=== PATIENT | male | born 1950 | race Caucasian/White ===

== ENCOUNTER 2017-04-23 19:50 | Inpatient (IN) ==
[2017-04-23] MEDS ORDERED: SALINE FLUSH 10ml SYRINGE IVF PRN (20:19)
--- NOTE | 2017-04-23 20:25 | Emergency Department Report ---
Chest Pain HPI - General Chief Complaint: Chest Pain Stated Complaint: Elevated Troponin Time Seen by Provider: 04/23/17 20:19 Source: patient, family Mode of arrival: ambulatory Limitations: no limitations - History of Present Illness HPI narrative: Patient went to his first time appointment to see Dr. Jean earlier today, and noted to Dr. Weber that he has had ongoing dyspnea and exertion with some upper chest and throat pain, constant but waxing and waning. The patient describes worsening of the symptoms with exertion or laying flat, improvement of the symptoms but not resolution when he is at rest. During the office visit the patient had lab drawn, had a chest x-ray done that was essentially unchanged from previous with hyperinflation consistent with mild COPD, but no mediastinal changes, no consolidations. Later in the day the lab returned, and showed the patient had a mildly elevated d-dimer at 833, and a significant elevated troponin at 0.38. Patient was contacted and directed back to the emergency department for further evaluation and treatment. Currently the patient states that he is still having mild 2-3 out of 10 up her chest supra-sternal discomfort that he describes as a mild tightness at the base of the neck and throat. - Related Data Home Medications Medication Instructions Recorded Confirmed Methocarbamol [Robaxin-750] 750 mg PO QID #0 01/09/11 04/23/17 Pantoprazole Sodium [Protonix] 40 mg PO ACB #0 01/09/11 04/23/17 Tramadol HCl [Ultram] 100 mg PO QID #0 09/14/11 04/23/17 Meloxicam 7.5 mg PO BID #0 07/21/12 04/23/17 Acetaminophen 500 mg PO QID #0 tab 12/30/14 04/23/17 Ascorbic Acid [Vitamin C] 1,000 mg PO BID #0 12/30/14 04/23/17 Aspirin 81 mg PO DAILY #0 tab 12/30/14 04/23/17 Albuterol Sulfate 1 vial INH PRN PRN #0 12/31/14 04/23/17 Sertraline HCl 100 mg PO DAILY #0 12/31/14 04/23/17 Gabapentin [Gralise] 1,800 mg PO HS #90 tab 02/08/16 04/23/17 Memantine HCl [Namenda Xr] 28 mg PO DAILY #0 cap 02/08/16 04/23/17 Calcium Carbonate [Calcium] 1,000 mg PO DAILY 04/23/17 04/23/17 [place]-3/Dha/Epa/Fish Oil [Fish Oil 1,000 mg PO DAILY 04/23/17 04/23/17 1,000 mg Softgel] Oxycodone Cr [Oxycontin] 15 mg PO QID 04/23/17 04/23/17 Rivastigmine Patch [Exelon Patch] 1 patch TD DAILY 04/23/17 04/23/17 Senna + Docusate [Senna Plus 1 tab PO DAILY 04/23/17 04/23/17 Tablet] Tamsulosin [Flomax] 0.4 mg PO HS 04/23/17 04/23/17 Ubidecarenone [Co Q-10] 200 mg PO DAILY 04/23/17 04/23/17 Allergies Allergy/AdvReac Type Severity Reaction Status Date / Time No Known Drug Allergies Allergy Unknown Verified 04/23/17 21:07 [facility] Patient Stated Medical History Hearing Loss Yes Congestive Heart Failure Yes Bronchitis Yes Pneumonia Yes Sleep Apnea Yes Gastroesophageal Reflux Yes Disease Other GI Yes: ventral hernia Hx Benign Prostatic Yes Hyperplasia Other Musculoskeletal Yes: neck pain Morbid obesity CAD BPH with urinary obstruction Chronic dyspnea on exertion Chronic neck pain, bilateral cervical radiculopathy Chronic low back pain Mild dementia, chronic and treated - memory loss Obstructive sleep apnea, CPAP Left meniscal tear, repaired Congestive heart failure ED Mild gait disturbance Viral labyrinthitis Surgical History: Cardiac catheter with 2 stents. Meniscal tear repair. Hip arthroplasty. ORIF C4 C6, T2 L1. Back surgery 2010. Right knee. Foot surgery Physical Exam - Limitations Limitations: no limitations - General General appearance: alert, obese, other (mild memory deficits) - Normal Exams: Head:: Normocephalic without trauma Eyes:: Pupils are PERRLA w/ EOMI, No scleral icterus, irritation, or foreign bodies noted ENMT:: No facial trauma, nasal exudates, pharyngeal erythema, or exudates are noted Neck:: Full range of motion, without adenopathy, JVD, bruits or thyromegaly Chest/Respirations:: Clear all ellis, with good airflow, and symmetry bilaterally Cardiovascular:: Regular rate and rhythm, without murmur or gallop, Pulses 2+ all extremities, capillary refill, <2 seconds all extremities Abdomen:: Bowel sounds positive, soft, non-tender, non-distended, no hepatosplenomegaly, masses or bruits noted Lymphatic:: No lymphadenopathy, or lymphedema noted Musculoskeletal:: No tenderness, or deformity noted, good range of motion, all extremities Integumentary:: No rashes, hives, or bruising noted, hair and nails, without abnormality Neurological:: Patient is alert, and oriented, cranial nerves, motor/sensory/ cerebellar, exams w/o gross deficits, to observation Psychiatric:: Patient exhibits, appropriate attention, emotion and affect Course Vital Signs Temperature 97.9 F 04/23/17 19:55 Pulse Rate 79 04/23/17 19:55 Respiratory Rate 14 04/23/17 19:55 Blood Pressure 135/72 04/23/17 19:55 Pulse Oximetry 92 04/23/17 19:55 Temperature 97.9 F 04/23/17 19:55 Pulse Rate 79 04/23/17 19:55 Respiratory Rate 14 04/23/17 19:55 Blood Pressure 135/72 04/23/17 19:55 Pulse Oximetry 92 04/23/17 19:55 Chest Pain - MDM Narrative Medical decision making narrative: EKG shows a normal sinus rhythm without ischemia, ectopy, or infarction Patient given 324 mg aspirin chewed, one sublingual nitroglycerin 1 inch of Nitropaste - Patient was informed that he appeared to be having significant injury to the heart currently, and that we wouldn't aggressively intervene as needed. Initially patient states that he will not go to [facility] if we recommended, however family is in agreement that we will start with continued workup at this time, and make decisions about disposition once we have more facts. Repeat CBC - CMP - Troponin- - Lab Data Result diagrams: 04/23/17 20:35 04/23/17 20:35 Lab Results 04/23/17 04/23/17 Range/Units 20:35 20:35 WBC 8.7 (4.5-11.0) T/MM3 RBC 4.63 (4.50-5.90) M/MM3 Hgb 13.8 (13.5-17.5) GM/DL Hct 42.3 (41-53) % MCV 91.4 (80-100) UM3 MCH 29.8 (26-34) UUG MCHC 32.6 (31-37) GM/DL RDW Std Deviation 46.6 (36.9-50.2) FL Plt Count 295 (130-400) T/MM3 MPV 8.6 L (9.4-12.4) UM3 Immature Gran % (Auto) 0.1 (0.0-0.5) % Neut % (Auto) 62.2 (33-66) % Lymph % (Auto) 26.1 (23-45) % [place] % (Auto) 7.5 (0-9.0) % Eos % (Auto) 3.9 (0-4) % Baso % (Auto) 0.2 (0-2) % Neut # 5.4 (1.8-7.7) T/MM3 Lymph # 2.3 (1-4.8) T/MM3 [place] # 0.7 (0-0.8) T/MM3 Eos # 0.3 (0-0.5) T/MM3 Baso # 0.0 (0-0.2) T/MM3 Abs Immat Gran (auto) 0.01 (0.00-0.03) T/MM3 Turbidity < 20 (0-20) Sodium 144 (134-144) MEQ/L Potassium 4.3 (3.6-5) MEQ/L Chloride 105 (98-107) MEQ/L Carbon Dioxide 26 (22-30) MEQ/L Anion Gap 13 (5-15) MEQ/L BUN 27.0 H (9-20) MG/DL Creatinine 1.1 (0.8-1.5) MG/DL GFR Calculation 67 BUN/Creatinine Ratio 25 (6-26) RATIO Glucose 104 (75-110) MG/DL Calculated Osmolality 282 H (261-280) MOSM/KG Calcium 8.9 (8.4-10.2) MG/DL Total Bilirubin 0.60 (0.20-1.30) MG/DL Conjugated Bilirubin 0.00 (0.00-0.30) MG/DL Unconjugated Bilirubin 0.10 (0.00-11.10) MG/DL Icterus Index < 2 (0-7) AST 19 (17-59) U/L ALT 33 (21-72) U/L Alkaline Phosphatase 117 (38-126) U/L Troponin I 0.324 H (0-0.12) ng/ml Total Protein 7.7 (6.3-8.2) G/DL Albumin 4.6 (3.5-5.0) G/DL Globulin 3.1 (2.4-3.6) G/DL Albumin/Globulin Ratio 1.5 (1.1-2.2) RATIO Specimen Hemolysis < 15 (0-25) Critical Care Time Total Critical Care Time: 40 Attestation: Patient required aggressive workup for non-STEMI including volume resuscitation for mild hypotension after nitroglycerin Disposition Clinical Impression: Non-STEMI (non-ST elevated myocardial infarction) Disposition: 02 To [facility] [place] Care Condition: Improved Prescriptions: Continue Meloxicam 7.5 mg PO BID #0 Acetaminophen 500 mg PO QID #0 tab Ascorbic Acid [Vitamin C] 1,000 mg PO BID #0 Aspirin 81 mg PO DAILY #0 tab Albuterol Sulfate 1 vial INH PRN PRN #0 PRN Reason: SHORTNESS OF AIR Gabapentin [Gralise] 1,800 mg PO HS #90 tab Memantine HCl [Namenda Xr] 28 mg PO DAILY #0 cap Oxycodone Cr [Oxycontin] 15 mg PO QID Tamsulosin [Flomax] 0.4 mg PO HS Rivastigmine Patch [Exelon Patch] 1 patch TD DAILY Ubidecarenone [Co Q-10] 200 mg PO DAILY Calcium Carbonate [Calcium] 1,000 mg PO DAILY Senna + Docusate [Senna Plus Tablet] 1 tab PO DAILY Methocarbamol [Robaxin-750] 750 mg PO QID #0 Pantoprazole Sodium [Protonix] 40 mg PO ACB #0 Tramadol HCl [Ultram] 100 mg PO QID #0 Sertraline HCl 100 mg PO DAILY #0 [place]-3/Dha/Epa/Fish Oil [Fish Oil 1,000 mg Softgel] 1,000 mg PO DAILY Referrals: Ever Shaikh MD [Family Provider] - - Seen By: physician
[2017-04-23] MEDS ORDERED: NITROGLYCERIN 2% OINTMENT 1gm PACKET TP ONE (20:48)
[2017-04-23] MEDS ORDERED: ASPIRIN 81 MG CHEWABLE TABLET PO ONE (20:48)
[2017-04-23] MEDS: NITROGLYCERIN 0.4 MG SUBLINGUAL TABLET SL PRN ×3 (21:01→21:59)
[2017-04-23] MEDS ORDERED: NS 1,000 ML IV ONE (21:39)
[2017-04-23] MEDS ORDERED: HEPARIN 1,000unit/ml INJECTION 10ml IVP ONE (22:03)
[2017-04-23] MEDS ORDERED: HEPARIN DRIP 20,000 UNIT/500 ML BAG IV SCH (22:06)
[2017-04-23 23:10] VITALS: BMI 45.9
[2017-04-24] MEDS ORDERED: ALBUTEROL 2.5mg/3ml (0.083%) NEB IH PRN (00:29)
--- NOTE | 2017-04-24 01:40 | Cardiology History & Physical ---
History of Present Illness Chief complaint: Chest pain with elevated troponin HPI: PCP: Dr. Jean Infection Control Manager: Dr. Vance Pain Management: Dr. Pacheco This is a 67 year old patient with a history of CAD, Hx coronary stent in in 1989'. Last stress test > 10yrs ago. Recent echo and told he has heart failure. On 12/30/[address] Clayton: EF 55%, BAD, RVD, mild mitral annulus calcification, trace MR, Aortic sclerosis, trace TR, mild PHTN, PAP 41. On 11/22/2015 he had scheduled hip surgery at [facility] and was provided cardiac clearance by Dr. 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 In 2010 he was hit in the head with a cement truck boom while at work for the [employer]. He had back surgery and has had chronic neck and back pain ever since. He sees Dr. [facility]ache[facility] for his pain medication and has seen him recently and increased his scheduled pain meds For the last 10 days he has been experiencing a tightness in his mid upper chest /throat are that occurs in the evening and lasts maybe 1 to 2 hrs. He is able to go to sleep and when he wakes up the pain/tightness is gone. He denies palpitations, irregular or fast heart beat, SOB, nausea, lightheadedness. He has significant GERD which he takes pantoprazole regularly and has helped quite a bit. He thought the tightness maybe GERD and he took OTC med which did not relieve his tightness. [place] somewhat [place] his obesity and chronic back pain. He rides the tractor and other equipment. 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 Today he had a routine appointment with his new PCP, Dr. Jean. He reported his upper chest tightness and Dr. Jean ordered a trop which was done through [facility]. Therefore it was sent to [facility] to be processed. The trop was elevated at 0.38 and elevated d-dimer at 833, and called Mr Mitchell told him to go to the ER. He also had a CXR: that was essentially unchanged from previous with hyperinflation consistent with mild COPD, but no mediastinal changes, no consolidations. At [facility] [place] trop 0.324. CBC and BMP were essentially normal. ECG: SR. In ER he received ASA, Ntg sl x3 which decreased his tightness from a 2-3 to 1/ 2. He received IVF for hypotension for the Ntg. Started on heparin bolus and gtt. and placed Ntg paste on chest. Dr. Clayton was contacted and agree to admit pt for further evaluation. Currently he has chest tightness he rates at 1/2 out of 6. No other pain. He is laying almost flat without SOB and was asleep until I awoke him for the interview. sleeping at bedside. Review of Systems - Constitutional Constitutional: Absent: chills, fever(s), malaise - EENMT Eyes: Absent: blurry vision Balance: Present: vertigo (occassioanl) Mouth/Throat: Absent: sore throat - Cardiovascular Cardiovascular: Present: chest pain, dyspnea on exertion. Absent: palpitations , syncope, orthopnea, edema, heart murmur Vascular: Present: other (+ 2 pedal pulses. ). Absent: pedal edema - Respiratory Respiratory: Present: dyspnea on exertion. Absent: cough - Gastrointestinal Gastrointestinal: Absent: abdominal pain, constipation, diarrhea - Musculoskeletal Musculoskeletal: Present: back pain, myalgias, neck pain - Integumentary/Breasts Integumentary: Absent: lesions, rash, swelling - Neurological Neurological: Absent: confusion, dizziness, headache(s), memory loss, tremor(s) - Psychiatric Psychiatric: Absent: anxiety, depression - Endocrine Endocrine: Absent: palpitations - Hematologic/Lymphatic Hematologic/Lymphatic: Absent: easy bleeding, easy bruising [facility] Patient Stated Medical History Hearing Loss Yes Congestive Heart Failure Yes Bronchitis Yes Pneumonia Yes Sleep Apnea Yes Gastroesophageal Reflux Yes Disease Other GI Yes: ventral hernia Hx Benign Prostatic Yes Hyperplasia Other Musculoskeletal Yes: neck pain Morbid obesity CAD BPH with urinary obstruction Chronic dyspnea on exertion Chronic neck pain, bilateral cervical radiculopathy Chronic low back pain Mild dementia, chronic and treated - memory loss Obstructive sleep apnea, CPAP Left meniscal tear, repaired Congestive heart failure ED Mild gait disturbance Viral labyrinthitis Surgical History: Cardiac catheter with 2 stents. Meniscal tear repair. Hip arthroplasty. ORIF C4 C6, T2 L1. Back surgery 2010. Right knee. Foot surgery Family History: Father had heart troubles from medications. Mother from pancreatic cancer. 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 [employer] Medications Home Medications Medication Instructions Recorded Confirmed Type Methocarbamol [Robaxin-750] 750 mg PO QID #0 01/09/11 04/23/17 History Pantoprazole Sodium [Protonix] 40 mg PO ACB #0 01/09/11 04/23/17 History Tramadol HCl [Ultram] 100 mg PO QID #0 09/14/11 04/23/17 History Meloxicam 7.5 mg PO BID #0 07/21/12 04/23/17 History Acetaminophen 500 mg PO QID #0 tab 12/30/14 04/23/17 History Ascorbic Acid [Vitamin C] 1,000 mg PO BID #0 12/30/14 04/23/17 History Aspirin 81 mg PO DAILY #0 tab 12/30/14 04/23/17 History Albuterol Sulfate 1 vial INH PRN PRN #0 12/31/14 04/23/17 History Sertraline HCl 100 mg PO DAILY #0 12/31/14 04/23/17 History Gabapentin [Gralise] 1,800 mg PO HS #90 tab 02/08/16 04/23/17 History Memantine HCl [Namenda Xr] 28 mg PO DAILY #0 cap 02/08/16 04/23/17 History Calcium Carbonate [Calcium] 1,000 mg PO DAILY 04/23/17 04/23/17 History [place]-3/Dha/Epa/Fish Oil [Fish Oil 1,000 mg PO DAILY 04/23/17 04/23/17 History 1,000 mg Softgel] Oxycodone Cr [Oxycontin] 15 mg PO QID 04/23/17 04/23/17 History Rivastigmine Patch [Exelon Patch] 1 patch TD DAILY 04/23/17 04/23/17 History Senna + Docusate [Senna Plus 1 tab PO DAILY 04/23/17 04/23/17 History Tablet] Tamsulosin [Flomax] 0.4 mg PO HS 04/23/17 04/23/17 History Ubidecarenone [Co Q-10] 200 mg PO DAILY 04/23/17 04/23/17 History Allergies Allergy/AdvReac Type Severity Reaction Status Date / Time No Known Drug Allergies Allergy Unknown Verified 04/23/17 21:07 Exam Vital signs: Temperature 97.9 F 04/23/17 19:55 Pulse Rate 68 04/23/17 22:45 Respiratory Rate 22 04/23/17 22:45 Blood Pressure 116/57 04/23/17 22:45 Pulse Oximetry 95 04/23/17 22:45 - Constitutional no acute distress, well nourished, well developed, morbidly obese, cooperative - Routine HEENT Exam Head: Present: normocephalic, atraumatic Eye: Present: conjunctivae pink ENT: Present: mucous membranes moist, dentition normal Nose: moist mucous membranes - Routine Neck Exam Absent: JVD, carotid bruit - Routine Chest/Breast/Axilla Exam Chest wall: Absent: tenderness - Routine Respiratory Exam Present: CTA bilaterally - Routine Cardiovascular Exam Present: RRR, no murmur - Routine Abdominal Exam Present: soft, normoactive bowel sounds, non tender - Routine Extremities Exam Present: no edema, non tender, normal capillary refill - Routine Back/Spine/Pelvis Exam Comments: Pt has chronic neck and back pain. - Routine Skin Exam Present: intact, dry, warm, normal turgor - Routine Neurological Exam Present: alert, oriented X3, moving all extremities, vision grossly intact, hearing grossly intact, normal speech - Routine Psychiatric Exam Present: normal affect, normal thought process Results 04/23/17 20:35 04/23/17 20:35 Intake and Output 04/23/17 04/23/17 04/24/17 14:59 22:59 06:59 Intake Total 1000 / 1000 Balance 1000 / 1000 Intake: IV 1000 / 1000 Normal Saline 1,000 ml @ 1000 / 1000 999.9 mls/hr IV .Q1H ONE Rx#:[id number] Other: Weight 320 lb 1.779 oz Patient Weight 04/24/17 06:59 Weight 320 lb 1.779 oz Laboratory Results - last 48 hr 04/23/17 04/23/17 20:35 20:35 WBC 8.7 RBC 4.63 Hgb 13.8 Hct 42.3 MCV 91.4 MCH 29.8 MCHC 32.6 RDW Std Deviation 46.6 Plt Count 295 MPV 8.6 L Immature Gran % (Auto) 0.1 Neut % (Auto) 62.2 Lymph % (Auto) 26.1 [place] % (Auto) 7.5 Eos % (Auto) 3.9 Baso % (Auto) 0.2 Neut # 5.4 Lymph # 2.3 [place] # 0.7 Eos # 0.3 Baso # 0.0 Abs Immat Gran (auto) 0.01 Turbidity < 20 Sodium 144 Potassium 4.3 Chloride 105 Carbon Dioxide 26 Anion Gap 13 BUN 27.0 H Creatinine 1.1 GFR Calculation 67 BUN/Creatinine Ratio 25 Glucose 104 Calculated Osmolality 282 H Calcium 8.9 Total Bilirubin 0.60 Conjugated Bilirubin 0.00 Unconjugated Bilirubin 0.10 Icterus Index < 2 AST 19 ALT 33 Alkaline Phosphatase 117 Troponin I 0.324 H Total Protein 7.7 Albumin 4.6 Globulin 3.1 Albumin/Globulin Ratio 1.5 Specimen Hemolysis < 15 - Imaging and Cardiology Imaging & Cardiology Narrative: 04/24/17 ECG: NSR. - EKG Interpretation EKG: sinus rhythm Hospital Course This is a general summary of the patient's hospital course. For more details refer to the complete medical record. Assessment and Plan (1) Non-STEMI (non-ST elevated myocardial infarction) Current visit: Yes Status: Acute Trop elevated at 0.324 (0.12) at [facility]. ECG: SR, no acute ST changes. Serial trop. Repeat ECG. With history of CAD and stent in . chest tightness relieved with Ntg. We will plan for a heart cath in the am. Cont ASA daily. start atorvastatin 40mg qhs. check Fasting lipid profile. No BG or KAYA due to HR 60 and SBP 90's to 100's. He states his BP is always on the low side. (2) GERD (gastroesophageal reflux disease) Current visit: Yes Status: Acute Cont pantoprozole. prn Tums. (3) Chronic back pain Current visit: Yes Status: Acute cont home pain meds except the meloxicam until after the heart cath. Pain managed by Dr. Pacheco with pain management clinic. (4) WHITFIELD (dyspnea on exertion) Current visit: Yes Status: Acute He appears euvolemic. No orthopnea. no edema. no SOB. He reported WHITFIELD - likely due to obesity, JENNIFER and lungs. (never smoked but is a mohan. ) echo to evaluate structure and function of heart. (5) Mild dementia Current visit: Yes Status: Acute he is awake and alert and oriented. But notes indicate he has mild dementian. Will cont meds. (6) JENNIFER (obstructive sleep apnea) Current visit: Yes Status: Acute Will order CPAP or recommend bring in his CPAP form home for tomorrow if he is still here. He is currently sleeping and will not disturb him tonight. - Attestation Attestation Narrative: 04/24/17 08:05 Recommendation After examining the patient I agree with the above assessment. I am involved in the formulation of the patient's plan of care.
[2017-04-24] MEDS: NITROGLYCERIN 0.4 MG SUBLINGUAL TABLET SL PRN (01:52)
[2017-04-24] MEDS ORDERED: ONDANSETRON 4 MG/2 ML INJECTION IVP PRN ×2 (02:31→08:28)
[2017-04-24] MEDS ORDERED: CALCIUM CARBONATE Chewable 500mg TABLET PO PRN (02:47)
[2017-04-24] MEDS: NITROGLYCERIN 2% OINTMENT 1gm PACKET TP SCH ×2 (03:40→07:44)
[2017-04-24] MEDS ORDERED: PANTOPRAZOLE 40 MG TABLET PO SCH (06:30)
[2017-04-24 06:34] VITALS: TEMP 99
[2017-04-24] MEDS ORDERED: HEPARIN 1,000unit/ml INJECTION 10ml ONE (07:02)
[2017-04-24] MEDS ORDERED: NITROGLYCERIN 50MG INJECTION IV ONE (07:02)
[2017-04-24] MEDS ORDERED: Verapamil 5 MG/2 ML VIAL ONE (07:02)
[2017-04-24] MEDS ORDERED: MIDAZOLAM 2mg/2ml INJECTION ONE (07:02)
[2017-04-24] MEDS ORDERED: IOHEXOL 350mg/ml 200ml BOTTLE ONE (07:03)
[2017-04-24] MEDS ORDERED: LIDOCAINE 1% (10mg/ml) 30ml SDV INJ ONE (07:03)
[2017-04-24] MEDS ORDERED: FentaNYL 100 MCG/2 ML INJECTION ONE (07:03)
[2017-04-24] MEDS ORDERED: HEPARIN 1,000 UNITS/500 ML PREMIX (*CVL ONLY*) IV ONE (07:03)
[2017-04-24] MEDS ORDERED: METOCLOPRAMIDE 10mg/2ml INJECTION IVP PRN (08:28)
[2017-04-24] MEDS ORDERED: MAG-AL + SIM ORAL LIQUID 30ml PO PRN (08:28)
[2017-04-24] MEDS ORDERED: MORPHINE SULFATE 4 MG SYRINGE IVP PRN ×2 (08:28)
[2017-04-24] MEDS ORDERED: PROMETHAZINE 25 MG INJECTION IVP PRN (08:28)
[2017-04-24] MEDS ORDERED: HYDROCODONE/APAP 5mg/325mg TABLET PO PRN (08:28)
[2017-04-24] MEDS ORDERED: NITROGLYCERIN 0.4 MG SUBLINGUAL TABLET SL PRN (08:28)
[2017-04-24] MEDS ORDERED: LORazepam 0.5 MG TABLET PO PRN (08:28)
[2017-04-24] MEDS ORDERED: BISACODYL 10 MG SUPPOSITORY RECTALLY PRN (08:28)
[2017-04-24] MEDS ORDERED: ACETAMINOPHEN 325 MG TABLET PO PRN (08:28)
[2017-04-24] MEDS ORDERED: ATROPINE 1 MG/ML INJECTION IVP PRN (08:28)
[2017-04-24] MEDS ORDERED: Bisacodyl EC TAB 5 MG TABLET PO PRN (08:28)
[2017-04-24] MEDS ORDERED: ASCORBIC ACID 500 MG TABLET PO SCH (09:00)
[2017-04-24] MEDS ORDERED: SENNA + DOCUSATE TABLET PO SCH (09:00)
[2017-04-24] MEDS ORDERED: RIVASTIGMINE 9.5 MG/24 HR PATCH TD SCH (09:00)
[2017-04-24] MEDS ORDERED: METHOCARBAMOL 750 MG TABLET PO SCH (09:00)
[2017-04-24] MEDS ORDERED: SERTRALINE 100 MG TABLET PO SCH (09:00)
[2017-04-24] MEDS ORDERED: COENZYME Q-10 200mg TABLET PO SCH (09:00)
[2017-04-24] MEDS ORDERED: TRAMADOL 50 MG TABLET PO SCH (09:00)
[2017-04-24] MEDS ORDERED: MEMANTINE 10 MG TABLET PO SCH (09:00)
[2017-04-24] MEDS ORDERED: OMEGA-3 ACID ESTERS 1 GM CAPSULE PO SCH (09:00)
[2017-04-24] MEDS ORDERED: ACETAMINOPHEN 500 MG TABLET PO SCH (09:00)
[2017-04-24] MEDS ORDERED: CALCIUM CARBONATE 500 MG TABLET PO SCH (09:00)
[2017-04-24] MEDS ORDERED: ASPIRIN 81 MG CHEWABLE TABLET PO SCH (09:00)
[2017-04-24 10:03] VITALS: BP 132/68; PULSE 59; RESP 32; O2SAT 96
--- NOTE | 2017-04-24 10:06 | Echocardiogram ---
DATE OF PROCEDURE April 24, 2017 This is a two-dimensional echo with spectral Doppler, color-flow and M-mode.. It was obtained in a patient with chest pain. This is a technically very difficult study. Left atrium is dilated. Left ventricle end-diastolic dimension is at the upper limits of normal. Left ventricle wall thickness is increased. LV systolic function is normal with ejection fraction of 55%. Right atrium is normal. Right ventricle is normal. Aortic root dimension is normal. Mitral valve appears to be normal with trace of mitral regurgitation. Aortic valve was not visualized well. However, it shows some fibrocalcific changes. There is no stenosis or insufficiency. Tricuspid valve shows trace of tricuspid regurgitation with normal estimated pulmonary artery systolic pressure of 31. Pulmonary valve shows no pulmonary insufficiency. There is no pericardial effusion. IMPRESSION 1. Technically difficult study. 2. Grossly normal LV systolic function with ejection fraction of about 55%. 3. Trace of mitral regurgitation. 4. Trace of tricuspid regurgitation with normal estimated pulmonary artery systolic pressure of 31. 5. Aortic sclerosis. 6. Left atrial dilation. 7. Left ventricular hypertrophy. MTDD
--- NOTE | 2017-04-24 10:31 | Cardiac Catheterization Report ---
DATE OF PROCEDURE April 24, [address] Holland Jean The patient is a pleasant 67-year-old gentleman who was admitted with non-STEMI and was referred for further evaluation by cardiac catheterization and possible intervention. Informed consent was obtained after explaining the procedure and the potential risks to the patient who agreed to proceed with the procedure. PROCEDURE 1. Left heart catheterization. 2. Coronary angiography. 3. Left ventriculography. TECHNIQUE He was prepped and draped in the usual sterile techniques. Conscious sedation was performed using Versed and fentanyl. 1% lidocaine was used for local anesthesia. Using modified Seldinger technique, arterial access was obtained into the right radial artery with placement of a 6-[place] arterial sheath. 3000 units of heparin, 300 mcg of nitroglycerin, and 2.5 mg of verapamil were given through the arterial sheath. LEFT VENTRICULOGRAPHY Left ventriculography in single-plane OMALLEY shallow projection showed normal LV systolic function with ejection fraction of about 65% with no mitral regurgitation or gradient across the aortic valve. LVEDP was about 6. CORONARY ANGIOGRAPHY Left main showed about 20% stenosis. Left anterior descending artery had about 70-75% eccentric stenosis at the origin of the second diagonal. First and second diagonals were small. Left circumflex artery had 80-90% proximal stenosis at the junction of the first marginal. First marginal also had 90% stenosis. Circumflex artery was occluded after the first marginal with left-to- left collaterals filling the distal circumflex and distal marginals. Right coronary artery was occluded with [id number] collaterals. The patient tolerated the procedure well with no complications. IMPRESSION 1. Normal LV systolic function with ejection fraction of about 65%. 2. Multivessel coronary artery disease as described above. PLAN Will transfer the patient and consult surgery for possible coronary artery bypass graft. [facility]
[2017-04-24] MEDS ORDERED: TAMSULOSIN 0.4 MG CAPSULE PO SCH (21:00)
[2017-04-24] MEDS ORDERED: GABAPENTIN 600 MG TABLET PO SCH (21:00)
[2017-04-24] MEDS ORDERED: ATORVASTATIN 40 MG TABLET PO SCH (21:00)
== END 2017-04-24 09:55 | disposition short-term general hospital (02) | DRG 281 ==
LOC: ED 19:50 → CCU 22:37
PROVIDERS: ADMIT Internal Medicine Cardiovascular Disease; ATTEND Internal Medicine Cardiovascular Disease